=== PATIENT | female | born 1990 | race Two or more races ===

== ENCOUNTER 2024-07-09 21:37 | Emergency (ER) | payer OTHER ==
[~2024-07-09] VITALS: Ht 170.2 cm; Wt 83.0 kg
[2024-07-09 22:49] VITALS: TEMP 98.3
--- NOTE | 2024-07-10 00:08 | DVH ---
OB ULTRASOUND <14 WEEKS: HISTORY: Vaginal bleed TECHNIQUE: Multiple real-time grayscale sonographic images of the pelvis with duplex Doppler color f low, spectral and M-mode analysis. Findings/ IMPRESSION: Uterus measures 9.3 x 5.2 x 6.1 cm. Endometrium measures 0.8 cm. Questionable anechoic structure seen near the uterine fundus measuring up to 1.1 cm. If this is a gestational sac corresponds to 5 weeks 2 days. No yolk sac visualized. No pole observed. Right ovary measures 2.7 x 1.5 x 2.2 cm. Left ovary measures 2.9 x 1.9 x 2.8 cm with a cystic lesion measuring 2.2 cm with peripheral vascularity suggestive of a corpus luteal cyst.. Normal bilateral co fuad doppler flow.
--- NOTE | 2024-07-10 01:16 | ED.PDOC ---
History of Present Illness HPI Comments This patient is a 34-year-old female who arrives the ED today for evaluation of possible retained products. Patient states that she was per multiple home test. Patient states she is approximately 5-1/2 cm . Patient started having vaginal bleeding events and went to [facility] for eval uation. [facility] stated the patient needed to get an ultrasound evaluation for viability. Patient states her beta-hCG at [facility] was 27. Chief Complaint: Vaginal Bleed Time Seen by MD: 21:59 Reviewed Notes: Nurses Notes Allergies: Coded Allergies: No Known Drug Allergy (Verified Allergy, Unknown, 07/09/24) Information Source: Patient Mode of Arrival: Ambulatory Severity: Mild Timing: Days Duration: Since onset Prehospital treatment: None Past Medical History PAST MEDICAL HISTORY: Denies Surgical History: Denies all surgeries LEGAL BILLING SPECIALIST History: No Pertinent LEGAL BILLING SPECIALIST History Family History Family History: Reviewed,noncontributory to illness, No family hx of Cancer, No family hx of DM, No family hx of Heart maira, No family hx of HTN, No family hx ofKidney maira, No family hx of Liver maira, No family hx of Lung maira, No family hx of Stroke Social History Smoker: Non-Smoker Alcohol: Denies ETOH Use Drugs: Denies Drug Use Lives In: Home Constitutional: denies: chills, diaphoresis, fatigue, fever, malaise, sweats, weakness, others EENTM: denies: blurred vision, double vision, ear bleeding, ear discharge, ear drainage, ear pain, ear ringing, eye pain, eye redness, hearing loss, mouth pain, mouth swelling, nasal discharge, nose bleeding, nose congestion, nose pain, photophobia, tearing, throat pain, throat swelling, voice changes, others Respiratory: denies: cough, hemoptysis, orthopnea, SOB at rest, shortness of breath, SOB with excertion, stridor, wheezing, others Cardiovascular: denies: chest pain, dizzy spells, diaphoresis, Dyspnea on exertion, edema, irregular heart beat, left arm pain, lightheadedness, palpitations, PND, syncope, others Gastrointestinal: denies: abdomen distended, abdominal pain, blood streaked bowels, constipated, diarrhea, dysphagia, difficulty swallowing, hematemesis, melena, nausea, poor appetite, poor fluid intake, rectal bleeding, rectal pain, vomiting, others Genitourinary: reports: abnormal vagina bleeding; denies: burning, dyspareunia, dysuria, flank pain, frequency, hematuria, incontinence, pain, , vagina discharge, urgency, others Neurological: denies: dizziness, fainting, headache, left sided numbness, left sided weakness, numbness, paresthesia, pre-existing deficit, right sided numbness, right sided weakness, seizure, speech problems, tingling, tremors, weakness, others Musculoskeletal: denies: back pain, gout, joint pain, joint swelling, muscle pain, muscle stiffness, neck pain, others Integumetry: denies: bruises, change in color, change in hair/nails, dryness, laceration, lesions, lumps, rash, wounds, others Allergic/Immunocompromised: denies: Difficulty Healing, Frequent Infections, Hives, Itching, others Hematologic/Lymphatic: denies: anemia, blood clots, easy bleeding, easy bruising, swollen glands, others Endocrine: denies: excessive hunger, excessive sweating, excessive thirst, excessive urination, flushing, intolerance to cold, intolerance to heat, unexplained weight gain, unexplained weight loss, others Psychiatric: denies: anxiety, bipolar disorder, depression, hopeless, panic disorder, schizophrenia, sleepless, suicidal, others Physical Exam General Appearance: Mild Distress (Moderate distress due to anxiety related to probable miscarriage.), Normal HEENT: Normal ENT Inspection, Pharynx Normal, TMs Normal Neck: Full Range of Motion, Non-Tender, Normal, Normal Inspection Respiratory: Chest Non-Tender, Lungs Clear, No Accessory Muscle Use, No Respiratory Distress, Normal Breath Sounds Cardiovascular: No Edema, No JVD, No Murmur, No Gallop, Normal Peripheral Pulses, Regular Rate/Rhythm Breast Exam: Deferred Gastrointestinal: No Organomegaly, Non Tender, No Pulsatile Mass, Normal Bowel Sounds, Soft Genitalia: Deferred Pelvic: Deferred Rectal: Deferred Extremities: No calf tenderness, Normal capillary refill, Normal inspection, Normal range of motion, Non-tender, No pedal edema Neurologic: Alert, No Motor Deficits, Normal Affect, Normal Mood, No Sensory Deficits Cerebellar Function: Normal Reflexes: Normal Skin: Dry, Normal Color, Warm Lymphatic: No Adenopathy Was a procedure done? Was a procedure done?: No Differential Dx Considerations may include: Threatened miscarriage, probable miscarriage, retained products of conception, miscarriage X-Ray, Labs, Meds, VS Vital Signs Date Time Temp Pulse Resp B/P (MAP) Pulse Ox O2 Delivery O2 Flow Rate FiO2 07/09/24 22:49 98.3 115 17 122/72 (89) 96 98.3 X-Ray, Labs, Meds, VS Comment All studies performed in the ED were evaluated by me personally. OB ultrasound was unremarkable for any retained products. Some minimal nondescript tissue noted. Patient has had a miscarriage. Time of 1ST Reevaluation: 01:15 Reevaluation 1ST: Unchanged Consultation: PCP, oven tender Patient Education/Counseling: Diagnosis, Treatment Family Education/Counseling: Diagnosis, Treatment Departure 1 Departure Time of Disposition: 01:15 Impression: Primary Impression: Miscarriage Disposition: HOME / SELF CARE / HOMELESS Condition: Stable Additional Instructions: Advised patient follow up with feed weigher as needed for continued consultation. Discharged With: Self, Friend Critical Care Note Critical Care Time?: No Stability Stability form required: No Heart Score Heart Score: Heart Score Response (Comments) Value History N/A 0 EKG N/A 0 Age N/A 0 Risk Factors N/A 0 Troponin N/A 0 Total 0 ROSARIO SPARKS PAC Jul 10, 2024 01:16
[2024-07-10 02:25] VITALS: BP 144/79; PULSE 98; RESP 17; O2SAT 98
== END 2024-07-10 02:32 | disposition home or self-care (01) ==
LOC: ER 21:37
DX: O03.9 Complete or unspecified spontaneous abortion without complication (principal)
CPT/HCPCS: 76801; 76817